=== PATIENT | male | born 1980 | race Caucasian/White ===

== ENCOUNTER 2022-02-13 12:47 | Inpatient (IN) | payer OTHER ==
[2022-02-13 15:09] LABS: HEMATOCRIT 39.3 % (35.4-49); HEMOGLOBIN 13.3 GM/dL (11.7-16.9); MCH 27.1 pg (25.7-33.7); MCHC 33.8 g/dl (32.0-35.9); MEAN CELL VOLUME 80.4 fl (80-96); MEAN PLT VOLUME 8.9 fl (7.5-11.1); PLATELET COUNT 231 10^3/uL (134-434); RBC 4.88 M/mm3 (4.00-5.60); RDW 14.3 % (11.9-15.9); WHITE BLOOD COUNT 10.7 K/mm3 (4.0-10.0)
[2022-02-13 15:11] LABS: INR 0.97 (0.83-1.09); PROTHROMBIN TIME (PATIENT) 11.2 SEC (9.7-13.0)
[2022-02-13 15:24] LABS: CHLORIDE 105 mmol/L (98-107); SODIUM 140 mmol/L (136-145)
[2022-02-13 15:27] LABS: ANION GAP 16 MMOL/L (8-16); CO2 19 mmol/L (21-32); GLUCOSE,RANDOM 96 mg/dL (74-106)
[2022-02-13 15:30] LABS: SGOT/AST 30 U/L (15-37); SGPT/ALT 31 U/L (13-61)
[2022-02-13 15:31] LABS: TOT PROT 6.7 g/dl (6.4-8.2)
[2022-02-13 15:33] LABS: ALK PHOS 111 U/L (45-117)
[2022-02-13 15:51] LABS: BILIRUBIN,TOTAL 0.3 mg/dL (0.2-1); BLOOD UREA NITROGEN 130.3 mg/dL (7-18); CALCIUM 5.9 mg/dL (8.5-10.1); CREATININE 11.2 mg/dL (0.55-1.3)
[2022-02-13] MEDS ORDERED: CALCIUM GLUCONATE 10% - 1,000 MG/10 ML VIAL IVPUSH ONE (16:41)
[2022-02-13] MEDS ORDERED: SODIUM CHLORIDE 0.9% 1000 ML INFUS.BAG IV ONE (16:43)
[2022-02-13] MEDS ORDERED: HEPARIN NA (PORCINE) 5,000 UNITS/ML 1ML VIAL IVPUSH ONE (16:44)
[2022-02-13] MEDS ORDERED: HEPARIN NA (PORCINE) 5,000 UNITS/ML 1ML VIAL IVPUSH PRN (16:44)
[2022-02-13] MEDS ORDERED: ASPIRIN 325 MG TABLET PO ONE (16:44)
[2022-02-13] MEDS ORDERED: LACTATED RINGERS SOLUTION 1,000 ML/1,000 ML INFUS.BAG IV SCH (16:45)
[2022-02-13] MEDS ORDERED: CALCIUM GLUCONATE 10% - 1,000 MG/10 ML VIAL ONE (16:46)
[2022-02-13] MEDS ORDERED: HEPARIN INFUSION - 25,000 UNITS/500 ML INFUS.BAG IVPB ONE (17:03)
[2022-02-13] MEDS ORDERED: ASPIRIN 325 MG TABLET ONE (17:03)
[2022-02-13] MEDS ORDERED: HEPARIN NA (PORCINE) 5,000 UNITS/ML 1ML VIAL ONE ×2 (17:03→22:59)
[2022-02-13] MEDS: HEPARIN INFUSION - 25,000 UNITS/500 ML INFUS.BAG IVPB SCH (17:12)
[2022-02-13 17:58] LABS: ACTIVATED PTT 40.4 SECONDS (25.2-36.5)
[2022-02-13 18:20] LABS: CHOLESTEROL 251 mg/dL (50-200)
[2022-02-13 18:21] LABS: TRIGLYCERIDES 323 mg/dL (0-150)
[2022-02-13 18:22] LABS: LDL CHOLESTEROL (ONLY SJRH) 168 mg/dL (5-100)
[2022-02-13 18:24] LABS: HDL CHOLESTEROL 55 mg/dL (40-60)
[2022-02-13 18:24] LABS: EPI CELLS 14 /uL (0-25.1); HYALINE CASTS 1 /uL (0-3.1); PH,URINE 5.5 (5.0-8.0); URINE APPEARANCE CLEAR; URINE BACTERIA 17 /uL (0-1359); URINE BILIRUBIN NEGATIVE (NEGATIVE); URINE COLOR YELLOW; URINE GLUCOSE (UA) TRACE (NEGATIVE); URINE KETONE NEGATIVE (NEGATIVE); URINE LEUK ESTERASE NEGATIVE (NEGATIVE); URINE NITRITE NEGATIVE (NEGATIVE); URINE PROTEIN 4+ (NEGATIVE); URINE RBC 14 /uL (0-23.9); URINE UROBILINOGEN 0.2 mg/dL (0.2-1.0); URINE WBC 33 /uL (0-25.8)
[2022-02-13 19:06] LABS: EPI CELLS 14 /uL (0-25.1); HYALINE CASTS 0 /uL (0-3.1); PH,URINE 5.5 (5.0-8.0); URINE APPEARANCE CLEAR; URINE BACTERIA 11 /uL (0-1359); URINE BILIRUBIN NEGATIVE (NEGATIVE); URINE COLOR YELLOW; URINE GLUCOSE (UA) NEGATIVE (NEGATIVE); URINE KETONE NEGATIVE (NEGATIVE); URINE LEUK ESTERASE NEGATIVE (NEGATIVE); URINE NITRITE NEGATIVE (NEGATIVE); URINE PROTEIN 4+ (NEGATIVE); URINE RBC 36 /uL (0-23.9); URINE UROBILINOGEN 0.2 mg/dL (0.2-1.0); URINE WBC 36 /uL (0-25.8)
[2022-02-13] MEDS: HEPARIN NA (PORCINE) 5,000 UNITS/ML 1ML VIAL IVPUSH PRN (23:00)
[2022-02-13 23:14] LABS: CHLORIDE 109 mmol/L (98-107); SODIUM 143 mmol/L (136-145)
[2022-02-13 23:16] LABS: ANION GAP 18 MMOL/L (8-16); CO2 16 mmol/L (21-32); GLUCOSE,RANDOM 127 mg/dL (74-106)
[2022-02-13 23:43] LABS: BLOOD UREA NITROGEN 122.2 mg/dL (7-18); CALCIUM 5.5 mg/dL (8.5-10.1); CREATININE 10.5 mg/dL (0.55-1.3)
[2022-02-14] MEDS ORDERED: CALCIUM GLUCONATE 10% - 1,000 MG/10 ML VIAL IVPUSH ONE ×2 (00:14→06:36)
[2022-02-14] MEDS ORDERED: CALCIUM CHLORIDE 1 GM/10 ML *DISP.SYRIN ONE (00:22)
[2022-02-14] MEDS ORDERED: CALCIUM GLUC IN NACL, ISO-OSM 1 GM/50 ML BAG IVPB ONE (00:24)
[2022-02-14] MEDS ORDERED: CALCIUM GLUCONATE 10% - 1,000 MG/10 ML VIAL ONE (00:24)
[2022-02-14 04:56] LABS: MAGNESIUM 2.3 mg/dL (1.8-2.4)
[2022-02-14] MEDS: HEPARIN NA (PORCINE) 5,000 UNITS/ML 1ML VIAL IVPUSH PRN (06:00)
[2022-02-14] MEDS ORDERED: HEPARIN NA (PORCINE) 5,000 UNITS/ML 1ML VIAL ONE ×3 (06:00→20:05)
[2022-02-14] MEDS ORDERED: CHOLECALCIFEROL (VIT D3) 1,000 UNIT (25 MCG) TABLET PO ONE (06:45)
[2022-02-14 08:04] LABS: BASO % 1.2 % (0-2.0); EOS % 3.2 % (0-4.5); HEMATOCRIT 36.5 % (35.4-49); LYMPH % 15.4 % (8-40); MCH 26.3 pg (25.7-33.7); MCHC 32.7 g/dl (32.0-35.9); MEAN CELL VOLUME 80.5 fl (80-96); MEAN PLT VOLUME 9.4 fl (7.5-11.1); MONO % 6.3 % (3.8-10.2); NEUT % 73.9 % (42.8-82.8); PLATELET COUNT 190 10^3/uL (134-434); RBC 4.54 M/mm3 (4.00-5.60); RDW 14.3 % (11.9-15.9); WHITE BLOOD COUNT 9.5 K/mm3 (4.0-10.0)
[2022-02-14 08:29] LABS: CHLORIDE 110 mmol/L (98-107); SODIUM 142 mmol/L (136-145)
[2022-02-14 08:38] LABS: ALBUMIN 2.6 g/dl (3.4-5.0)
[2022-02-14 08:40] LABS: ANION GAP 15 MMOL/L (8-16); CO2 17 mmol/L (21-32); GLUCOSE,RANDOM 99 mg/dL (74-106); MAGNESIUM 2.4 mg/dL (1.8-2.4)
[2022-02-14 08:42] LABS: PHOSPHOROUS 7.8 mg/dL (2.5-4.9); SGOT/AST 25 U/L (15-37); SGPT/ALT 26 U/L (13-61)
[2022-02-14 08:43] LABS: BILIRUBIN,TOTAL 0.4 mg/dL (0.2-1); TOT PROT 5.8 g/dl (6.4-8.2)
[2022-02-14 08:44] LABS: ALK PHOS 90 U/L (45-117)
[2022-02-14 08:50] LABS: BLOOD UREA NITROGEN 116.8 mg/dL (7-18); CALCIUM 6.4 mg/dL (8.5-10.1); CREATININE 10.3 mg/dL (0.55-1.3)
[2022-02-14] MEDS ORDERED: amLODIPine BESYLATE 5 MG TABLET (FP) ONE (11:48)
[2022-02-14] MEDS: LACTATED RINGERS SOLUTION 1,000 ML/1,000 ML INFUS.BAG IV SCH (11:51)
[2022-02-14] MEDS: SODIUM BICARBONATE 650 MG TABLET PO SCH (11:51)
[2022-02-14] MEDS: CALCIUM ACETATE 667 MG CAPSULE (FP) PO SCH ×2 (11:51→17:30)
[2022-02-14] MEDS: amLODIPine BESYLATE 5 MG TABLET (FP) PO SCH (11:51)
[2022-02-14] MEDS: CALCITRIOL 0.25 MCG CAPSULE (FP) PO SCH (14:45)
[2022-02-14] MEDS ORDERED: ACETAMINOPHEN 325 MG TABLET (FP) PO PRN (16:34)
[2022-02-14] MEDS ORDERED: HEPARIN INFUSION - 25,000 UNITS/500 ML INFUS.BAG IVPB ONE (23:14)
[2022-02-15] MEDS: SODIUM BICARBONATE 650 MG TABLET PO SCH ×3 (02:19→21:01)
[2022-02-15] MEDS: CALCIUM ACETATE 667 MG CAPSULE (FP) PO SCH ×3 (09:00→17:25)
[2022-02-15 09:12] LABS: BASO % 0.8 % (0-2.0); HEMATOCRIT 38.9 % (35.4-49); HEMOGLOBIN 12.5 GM/dL (11.7-16.9); LYMPH % 12.3 % (8-40); MCH 26.2 pg (25.7-33.7); MCHC 32.3 g/dl (32.0-35.9); MEAN CELL VOLUME 81.2 fl (80-96); MEAN PLT VOLUME 9.5 fl (7.5-11.1); MONO % 5.5 % (3.8-10.2); NEUT % 78.4 % (42.8-82.8); PLATELET COUNT 192 10^3/uL (134-434); RBC 4.78 M/mm3 (4.00-5.60); RDW 14.3 % (11.9-15.9); WHITE BLOOD COUNT 11.3 K/mm3 (4.0-10.0)
[2022-02-15] MEDS: CALCITRIOL 0.25 MCG CAPSULE (FP) PO SCH (09:26)
[2022-02-15] MEDS: amLODIPine BESYLATE 5 MG TABLET (FP) PO SCH (09:26)
[2022-02-15] MEDS ORDERED: amLODIPine BESYLATE 5 MG TABLET (FP) PO ONE (10:14)
[2022-02-15 11:50] LABS: CHLORIDE 109 mmol/L (98-107); SODIUM 143 mmol/L (136-145)
[2022-02-15 11:56] LABS: ALBUMIN 2.7 g/dl (3.4-5.0); GLUCOSE,RANDOM 109 mg/dL (74-106)
[2022-02-15 11:57] LABS: ANION GAP 16 MMOL/L (8-16); CO2 18 mmol/L (21-32); MAGNESIUM 2.1 mg/dL (1.8-2.4)
[2022-02-15 11:58] LABS: PHOSPHOROUS 7.2 mg/dL (2.5-4.9)
[2022-02-15 12:00] LABS: SGPT/ALT 25 U/L (13-61)
[2022-02-15 12:01] LABS: ALK PHOS 91 U/L (45-117)
[2022-02-15 12:03] LABS: SGOT/AST 16 U/L (15-37)
[2022-02-15] MEDS: LACTATED RINGERS SOLUTION 1,000 ML/1,000 ML INFUS.BAG IV SCH ×3 (12:04→21:01)
[2022-02-15 15:40] LABS: BILIRUBIN,TOTAL QNS mg/dL (0.2-1)
[2022-02-15 15:43] LABS: CREATININE 10.1 mg/dL (0.55-1.3)
[2022-02-15 15:44] LABS: CALCIUM 6.8 mg/dL (8.5-10.1)
[2022-02-15] MEDS: HEPARIN INFUSION - 25,000 UNITS/500 ML INFUS.BAG IVPB SCH ×2 (17:18→17:24)
[2022-02-15] MEDS ORDERED: hydrALAZINE HCL 10 MG TABLET PO SCH (20:15)
[2022-02-15] MEDS: METOPROLOL TARTRATE 25 MG TABLET (FP) PO SCH (23:15)
[2022-02-15] MEDS: hydrALAZINE HCL 25 MG TABLET (FP) PO SCH (23:15)
[2022-02-15] MEDS: ISOSORBIDE DINITRATE 10 MG TABLET PO SCH (23:15)
[2022-02-16 07:15] LABS: BASO % 0.9 % (0-2.0); HEMATOCRIT 35.5 % (35.4-49); HEMOGLOBIN 11.7 GM/dL (11.7-16.9); LYMPH % 11.9 % (8-40); MCH 26.6 pg (25.7-33.7); MCHC 33.1 g/dl (32.0-35.9); MEAN CELL VOLUME 80.4 fl (80-96); MEAN PLT VOLUME 9.2 fl (7.5-11.1); MONO % 7.1 % (3.8-10.2); NEUT % 76.1 % (42.8-82.8); PLATELET COUNT 180 10^3/uL (134-434); RBC 4.42 M/mm3 (4.00-5.60); RDW 14.4 % (11.9-15.9); WHITE BLOOD COUNT 12.3 K/mm3 (4.0-10.0)
[2022-02-16 07:29] LABS: CHLORIDE 110 mmol/L (98-107); SODIUM 143 mmol/L (136-145)
[2022-02-16 07:31] LABS: ALBUMIN 2.6 g/dl (3.4-5.0); ANION GAP 14 MMOL/L (8-16); CO2 19 mmol/L (21-32); GLUCOSE,RANDOM 99 mg/dL (74-106); MAGNESIUM 1.8 mg/dL (1.8-2.4)
[2022-02-16 07:34] LABS: PHOSPHOROUS 6.6 mg/dL (2.5-4.9); SGOT/AST 14 U/L (15-37); SGPT/ALT 22 U/L (13-61)
[2022-02-16 07:37] LABS: BILIRUBIN,TOTAL 0.3 mg/dL (0.2-1); TOT PROT 5.8 g/dl (6.4-8.2)
[2022-02-16 07:38] LABS: ALK PHOS 83 U/L (45-117)
[2022-02-16 08:20] LABS: CALCIUM 6.5 mg/dL (8.5-10.1); CREATININE 10.3 mg/dL (0.55-1.3)
[2022-02-16] MEDS: CALCIUM ACETATE 667 MG CAPSULE (FP) PO SCH ×4 (08:51→17:12)
[2022-02-16] MEDS: ISOSORBIDE DINITRATE 10 MG TABLET PO SCH ×2 (08:51→13:55)
[2022-02-16] MEDS: SODIUM BICARBONATE 650 MG TABLET PO SCH ×2 (09:56→21:17)
[2022-02-16] MEDS: CALCITRIOL 0.25 MCG CAPSULE (FP) PO SCH (09:56)
[2022-02-16] MEDS: hydrALAZINE HCL 25 MG TABLET (FP) PO SCH ×2 (09:59→21:17)
[2022-02-16] MEDS: METOPROLOL TARTRATE 25 MG TABLET (FP) PO SCH ×2 (09:59→21:17)
[2022-02-16] MEDS ORDERED: amLODIPine BESYLATE 5 MG TABLET (FP) PO SCH (10:00)
[2022-02-16] MEDS ORDERED: SODIUM CHLORIDE 250 ML IV PRN ×2 (11:01→15:48)
[2022-02-16] MEDS ORDERED: LIDOCAINE HCL 1%, 10 MG/ML (20ML VIAL) ONE (14:47)
[2022-02-16] MEDS ORDERED: HEPARIN NA (PORCINE) 5,000 UNITS/ML 1ML VIAL ONE (14:48)
[2022-02-16] MEDS ORDERED: FENTANYL CITRATE/PF 50 MCG/ML VIAL ONE (14:56)
[2022-02-16] MEDS ORDERED: MIDAZOLAM HCL 2 MG/2 ML SINGLE DOSE VIAL ONE (14:56)
[2022-02-16] MEDS ORDERED: ceFAZolin SODIUM 1 GM VIAL IVPB ONE (15:15)
[2022-02-16] MEDS ORDERED: ceFAZolin SODIUM 1 GM VIAL ONE (15:16)
[2022-02-16] MEDS ORDERED: ONDANSETRON 4 MG/2 ML VIAL IVPUSH PRN ×2 (15:17→15:48)
[2022-02-16] MEDS ORDERED: LIDOCAINE HCL 1%, 10 MG/ML (20ML VIAL) NR ONE (15:17)
[2022-02-16] MEDS ORDERED: HEPARIN NA (PORCINE) 5,000 UNITS/ML 1ML VIAL SQ ONE (15:21)
[2022-02-16] MEDS ORDERED: LACTATED RINGERS SOLUTION 1,000 ML IV SCH (15:30)
[2022-02-16] MEDS ORDERED: ACETAMINOPHEN 325 MG TABLET (FP) PO PRN (15:48)
[2022-02-16] MEDS: LACTATED RINGERS SOLUTION 1,000 ML IV SCH (17:59)
[2022-02-17] MEDS: hydrALAZINE HCL 25 MG TABLET (FP) PO SCH ×4 (06:40→22:25)
[2022-02-17] MEDS: LACTATED RINGERS SOLUTION 1,000 ML IV SCH (06:41)
[2022-02-17 08:21] LABS: EOS % 3.1 % (0-4.5); HEMATOCRIT 37.9 % (35.4-49); HEMOGLOBIN 12.5 GM/dL (11.7-16.9); LYMPH % 10.9 % (8-40); MCH 26.2 pg (25.7-33.7); MCHC 32.9 g/dl (32.0-35.9); MEAN CELL VOLUME 79.8 fl (80-96); MEAN PLT VOLUME 9.3 fl (7.5-11.1); MONO % 6.1 % (3.8-10.2); NEUT % 78.9 % (42.8-82.8); PLATELET COUNT 186 10^3/uL (134-434); RBC 4.75 M/mm3 (4.00-5.60); RDW 13.8 % (11.9-15.9); WHITE BLOOD COUNT 9.5 K/mm3 (4.0-10.0)
[2022-02-17 08:39] LABS: CHLORIDE 108 mmol/L (98-107); SODIUM 144 mmol/L (136-145)
[2022-02-17 09:31] LABS: ANION GAP 12 MMOL/L (8-16); CO2 23 mmol/L (21-32)
[2022-02-17] MEDS: METOPROLOL TARTRATE 25 MG TABLET (FP) PO SCH ×2 (09:38→22:24)
[2022-02-17] MEDS: CALCIUM ACETATE 667 MG CAPSULE (FP) PO SCH ×3 (09:38→17:06)
[2022-02-17] MEDS: amLODIPine BESYLATE 10 MG TABLET (FP) PO SCH (09:38)
[2022-02-17] MEDS: ISOSORBIDE DINITRATE 10 MG TABLET PO SCH ×2 (09:38→13:21)
[2022-02-17] MEDS: SODIUM BICARBONATE 650 MG TABLET PO SCH ×2 (09:38→22:25)
[2022-02-17] MEDS: CALCITRIOL 0.25 MCG CAPSULE (FP) PO SCH (09:39)
[2022-02-17] MEDS ORDERED: amLODIPine BESYLATE 5 MG TABLET (FP) PO SCH (10:00)
[2022-02-17 10:01] LABS: GLUCOSE,RANDOM 87 mg/dL (74-106)
[2022-02-17 10:02] LABS: ALBUMIN 2.8 g/dl (3.4-5.0)
[2022-02-17 10:04] LABS: PHOSPHOROUS 5.7 mg/dL (2.5-4.9); SGOT/AST 25 U/L (15-37)
[2022-02-17 10:06] LABS: TOT PROT 6.4 g/dl (6.4-8.2)
[2022-02-17 10:07] LABS: BILIRUBIN,TOTAL 0.4 mg/dL (0.2-1)
[2022-02-17 12:42] LABS: SGPT/ALT 27 U/L (13-61)
[2022-02-17 13:54] LABS: ALK PHOS 90 U/L (45-117)
[2022-02-17 13:57] LABS: BLOOD UREA NITROGEN 75.2 mg/dL (7-18); CALCIUM 7.6 mg/dL (8.5-10.1); CREATININE 8.2 mg/dL (0.55-1.3)
[2022-02-18] MEDS: hydrALAZINE HCL 25 MG TABLET (FP) PO SCH ×3 (06:12→21:02)
[2022-02-18 07:41] LABS: HEMATOCRIT 38.2 % (35.4-49); HEMOGLOBIN 12.5 GM/dL (11.7-16.9); MCH 26.5 pg (25.7-33.7); MCHC 32.7 g/dl (32.0-35.9); MEAN CELL VOLUME 80.9 fl (80-96); MEAN PLT VOLUME 9.4 fl (7.5-11.1); PLATELET COUNT 188 10^3/uL (134-434); RBC 4.72 M/mm3 (4.00-5.60); WHITE BLOOD COUNT 9.6 K/mm3 (4.0-10.0)
[2022-02-18 08:00] LABS: CHLORIDE 108 mmol/L (98-107); SODIUM 141 mmol/L (136-145)
[2022-02-18 08:07] LABS: ALBUMIN 2.9 g/dl (3.4-5.0); CALCIUM 7.7 mg/dL (8.5-10.1); GLUCOSE,RANDOM 96 mg/dL (74-106)
[2022-02-18 08:08] LABS: ANION GAP 12 MMOL/L (8-16); CO2 22 mmol/L (21-32)
[2022-02-18 08:11] LABS: SGOT/AST 17 U/L (15-37); SGPT/ALT 23 U/L (13-61)
[2022-02-18 08:12] LABS: BILIRUBIN,TOTAL 0.4 mg/dL (0.2-1); TOT PROT 6.3 g/dl (6.4-8.2)
[2022-02-18 08:13] LABS: ALK PHOS 92 U/L (45-117)
[2022-02-18] MEDS: CALCIUM ACETATE 667 MG CAPSULE (FP) PO SCH ×3 (08:54→17:17)
[2022-02-18] MEDS: ISOSORBIDE DINITRATE 10 MG TABLET PO SCH ×2 (08:54→12:02)
[2022-02-18] MEDS: SODIUM BICARBONATE 650 MG TABLET PO SCH ×2 (09:05→21:02)
[2022-02-18] MEDS: amLODIPine BESYLATE 10 MG TABLET (FP) PO SCH (09:05)
[2022-02-18] MEDS: METOPROLOL TARTRATE 25 MG TABLET (FP) PO SCH ×2 (09:05→21:02)
[2022-02-18] MEDS: CALCITRIOL 0.25 MCG CAPSULE (FP) PO SCH (09:06)
[2022-02-18] MEDS ORDERED: SODIUM CHLORIDE 250 ML IV PRN (11:24)
[2022-02-18] MEDS: HEPARIN NA (PORCINE) 5,000 UNITS/ML 1ML VIAL SQ SCH (21:02)
[2022-02-19] MEDS: hydrALAZINE HCL 25 MG TABLET (FP) PO SCH ×3 (05:25→21:22)
[2022-02-19 08:40] LABS: HEMATOCRIT 39.1 % (35.4-49); HEMOGLOBIN 12.8 GM/dL (11.7-16.9); MCH 26.4 pg (25.7-33.7); MCHC 32.7 g/dl (32.0-35.9); MEAN CELL VOLUME 80.8 fl (80-96); MEAN PLT VOLUME 9.6 fl (7.5-11.1); PLATELET COUNT 188 10^3/uL (134-434); RBC 4.84 M/mm3 (4.00-5.60); RDW 13.9 % (11.9-15.9); WHITE BLOOD COUNT 9.9 K/mm3 (4.0-10.0)
[2022-02-19] MEDS: ISOSORBIDE DINITRATE 10 MG TABLET PO SCH ×2 (08:47→12:12)
[2022-02-19] MEDS: CALCIUM ACETATE 667 MG CAPSULE (FP) PO SCH ×3 (08:48→17:25)
[2022-02-19 09:04] LABS: CHLORIDE 107 mmol/L (98-107); SODIUM 141 mmol/L (136-145)
[2022-02-19 09:09] LABS: CALCIUM 7.7 mg/dL (8.5-10.1)
[2022-02-19 09:10] LABS: ALBUMIN 2.9 g/dl (3.4-5.0); ANION GAP 14 MMOL/L (8-16); BLOOD UREA NITROGEN 88.3 mg/dL (7-18); CO2 20 mmol/L (21-32); GLUCOSE,RANDOM 90 mg/dL (74-106)
[2022-02-19 09:12] LABS: SGOT/AST 16 U/L (15-37); SGPT/ALT 22 U/L (13-61)
[2022-02-19 09:14] LABS: BILIRUBIN,TOTAL 0.3 mg/dL (0.2-1); TOT PROT 6.3 g/dl (6.4-8.2)
[2022-02-19 09:15] LABS: ALK PHOS 89 U/L (45-117)
[2022-02-19 09:16] LABS: CREATININE 9.7 mg/dL (0.55-1.3)
[2022-02-19] MEDS ORDERED: HEPARIN NA (PORCINE) 5,000 UNITS/ML 1ML VIAL IVPUSH ONE (09:30)
[2022-02-19] MEDS: amLODIPine BESYLATE 10 MG TABLET (FP) PO SCH (12:11)
[2022-02-19] MEDS: CALCITRIOL 0.25 MCG CAPSULE (FP) PO SCH (12:11)
[2022-02-19] MEDS: HEPARIN NA (PORCINE) 5,000 UNITS/ML 1ML VIAL SQ SCH ×2 (12:12→21:22)
[2022-02-19] MEDS: METOPROLOL TARTRATE 25 MG TABLET (FP) PO SCH (12:12)
[2022-02-19] MEDS: METOPROLOL TARTRATE 50 MG TABLET (FP) PO SCH (21:22)
[2022-02-20] MEDS: hydrALAZINE HCL 25 MG TABLET (FP) PO SCH ×3 (06:22→21:14)
[2022-02-20 07:59] LABS: HEMATOCRIT 39.2 % (35.4-49); HEMOGLOBIN 12.9 GM/dL (11.7-16.9); MCH 26.6 pg (25.7-33.7); MCHC 32.9 g/dl (32.0-35.9); MEAN CELL VOLUME 80.7 fl (80-96); MEAN PLT VOLUME 9.6 fl (7.5-11.1); PLATELET COUNT 192 10^3/uL (134-434); RBC 4.85 M/mm3 (4.00-5.60); RDW 14.3 % (11.9-15.9); WHITE BLOOD COUNT 10.2 K/mm3 (4.0-10.0)
[2022-02-20 08:04] LABS: CHLORIDE 105 mmol/L (98-107); SODIUM 142 mmol/L (136-145)
[2022-02-20 08:08] LABS: CALCIUM 7.6 mg/dL (8.5-10.1)
[2022-02-20 08:09] LABS: ALBUMIN 2.9 g/dl (3.4-5.0); ANION GAP 14 MMOL/L (8-16); BLOOD UREA NITROGEN 63.6 mg/dL (7-18); CO2 23 mmol/L (21-32); GLUCOSE,RANDOM 100 mg/dL (74-106); MAGNESIUM 2.3 mg/dL (1.8-2.4)
[2022-02-20 08:12] LABS: SGOT/AST 19 U/L (15-37); SGPT/ALT 27 U/L (13-61)
[2022-02-20 08:14] LABS: BILIRUBIN,TOTAL 0.7 mg/dL (0.2-1); TOT PROT 6.6 g/dl (6.4-8.2)
[2022-02-20 08:15] LABS: ALK PHOS 89 U/L (45-117)
[2022-02-20 08:17] LABS: CREATININE 8.4 mg/dL (0.55-1.3)
[2022-02-20] MEDS: CALCIUM ACETATE 667 MG CAPSULE (FP) PO SCH ×3 (09:59→17:10)
[2022-02-20] MEDS: CALCITRIOL 0.25 MCG CAPSULE (FP) PO SCH (10:00)
[2022-02-20] MEDS: ISOSORBIDE DINITRATE 10 MG TABLET PO SCH ×2 (10:00→12:12)
[2022-02-20] MEDS: amLODIPine BESYLATE 10 MG TABLET (FP) PO SCH (10:00)
[2022-02-20] MEDS: METOPROLOL TARTRATE 50 MG TABLET (FP) PO SCH ×2 (10:00→21:12)
[2022-02-20] MEDS: HEPARIN NA (PORCINE) 5,000 UNITS/ML 1ML VIAL SQ SCH ×2 (10:00→21:11)
[2022-02-20] MEDS ORDERED: SODIUM CHLORIDE 250 ML IV PRN (13:56)
[2022-02-21] MEDS: hydrALAZINE HCL 25 MG TABLET (FP) PO SCH ×4 (06:09→21:05)
[2022-02-21 07:47] LABS: HEMATOCRIT 38.3 % (35.4-49); HEMOGLOBIN 12.8 GM/dL (11.7-16.9); MCHC 33.3 g/dl (32.0-35.9); MEAN CELL VOLUME 80.9 fl (80-96); MEAN PLT VOLUME 9.1 fl (7.5-11.1); PLATELET COUNT 190 10^3/uL (134-434); RBC 4.73 M/mm3 (4.00-5.60); WHITE BLOOD COUNT 10.1 K/mm3 (4.0-10.0)
[2022-02-21 08:02] LABS: CHLORIDE 106 mmol/L (98-107); SODIUM 141 mmol/L (136-145)
[2022-02-21 08:05] LABS: CALCIUM 7.6 mg/dL (8.5-10.1)
[2022-02-21 08:06] LABS: ANION GAP 13 MMOL/L (8-16); CO2 22 mmol/L (21-32); GLUCOSE,RANDOM 93 mg/dL (74-106); MAGNESIUM 2.5 mg/dL (1.8-2.4)
[2022-02-21 08:09] LABS: SGOT/AST 20 U/L (15-37); SGPT/ALT 27 U/L (13-61)
[2022-02-21 08:11] LABS: BILIRUBIN,TOTAL 0.4 mg/dL (0.2-1); TOT PROT 6.6 g/dl (6.4-8.2)
[2022-02-21 08:12] LABS: ALK PHOS 92 U/L (45-117)
[2022-02-21 08:13] LABS: CREATININE 9.6 mg/dL (0.55-1.3)
[2022-02-21] MEDS: ISOSORBIDE DINITRATE 10 MG TABLET PO SCH ×2 (08:35→12:20)
[2022-02-21] MEDS: CALCIUM ACETATE 667 MG CAPSULE (FP) PO SCH ×3 (08:36→17:03)
[2022-02-21] MEDS ORDERED: REGADENOSON 0.4 MG/5 ML PRE-FILLED SYRINGE IVPUSH ONE ×2 (10:28→11:00)
[2022-02-21] MEDS: HEPARIN NA (PORCINE) 5,000 UNITS/ML 1ML VIAL SQ SCH ×2 (12:18→21:05)
[2022-02-21] MEDS: CALCITRIOL 0.25 MCG CAPSULE (FP) PO SCH (12:18)
[2022-02-21] MEDS: amLODIPine BESYLATE 10 MG TABLET (FP) PO SCH (14:33)
[2022-02-21] MEDS: ASPIRIN COATED 81 MG TABLET.EC PO SCH (21:05)
[2022-02-22] MEDS: hydrALAZINE HCL 25 MG TABLET (FP) PO SCH ×3 (06:09→21:12)
[2022-02-22 07:57] LABS: HEMOGLOBIN 12.3 GM/dL (11.7-16.9); MCH 26.4 pg (25.7-33.7); MCHC 32.5 g/dl (32.0-35.9); MEAN CELL VOLUME 81.3 fl (80-96); MEAN PLT VOLUME 9.4 fl (7.5-11.1); PLATELET COUNT 178 10^3/uL (134-434); RBC 4.68 M/mm3 (4.00-5.60); RDW 13.8 % (11.9-15.9); WHITE BLOOD COUNT 8.3 K/mm3 (4.0-10.0)
[2022-02-22 08:20] LABS: CALCIUM 7.8 mg/dL (8.5-10.1)
[2022-02-22 08:21] LABS: MAGNESIUM 2.3 mg/dL (1.8-2.4)
[2022-02-22 08:24] LABS: CREATININE 7.4 mg/dL (0.55-1.3)
[2022-02-22 08:26] LABS: BILIRUBIN,TOTAL 0.5 mg/dL (0.2-1); TOT PROT 6.4 g/dl (6.4-8.2)
[2022-02-22] MEDS: CALCIUM ACETATE 667 MG CAPSULE (FP) PO SCH ×3 (09:18→17:10)
[2022-02-22] MEDS: ASPIRIN COATED 81 MG TABLET.EC PO SCH (09:18)
[2022-02-22] MEDS: ISOSORBIDE DINITRATE 10 MG TABLET PO SCH ×2 (09:19→13:06)
[2022-02-22] MEDS: HEPARIN NA (PORCINE) 5,000 UNITS/ML 1ML VIAL SQ SCH ×2 (09:19→21:12)
[2022-02-22] MEDS: amLODIPine BESYLATE 10 MG TABLET (FP) PO SCH (09:19)
[2022-02-22] MEDS: CALCITRIOL 0.25 MCG CAPSULE (FP) PO SCH (09:19)
[2022-02-22] MEDS ORDERED: SODIUM CHLORIDE 250 ML IV PRN (11:59)
[2022-02-23] MEDS: hydrALAZINE HCL 25 MG TABLET (FP) PO SCH ×3 (05:54→21:20)
[2022-02-23 09:01] LABS: HEMATOCRIT 38.6 % (35.4-49); HEMOGLOBIN 12.3 GM/dL (11.7-16.9); MCH 26.1 pg (25.7-33.7); MCHC 31.9 g/dl (32.0-35.9); MEAN CELL VOLUME 81.8 fl (80-96); MEAN PLT VOLUME 9.4 fl (7.5-11.1); PLATELET COUNT 197 10^3/uL (134-434); RBC 4.71 M/mm3 (4.00-5.60); RDW 13.8 % (11.9-15.9); WHITE BLOOD COUNT 7.6 K/mm3 (4.0-10.0)
[2022-02-23 09:16] LABS: CHLORIDE 103 mmol/L (98-107); SODIUM 140 mmol/L (136-145)
[2022-02-23 09:18] LABS: CALCIUM 8.1 mg/dL (8.5-10.1)
[2022-02-23 09:19] LABS: ALBUMIN 3.1 g/dl (3.4-5.0); ANION GAP 13 MMOL/L (8-16); BLOOD UREA NITROGEN 65.4 mg/dL (7-18); CO2 23 mmol/L (21-32); GLUCOSE,RANDOM 211 mg/dL (74-106); MAGNESIUM 2.4 mg/dL (1.8-2.4)
[2022-02-23 09:22] LABS: SGOT/AST 19 U/L (15-37); SGPT/ALT 29 U/L (13-61)
[2022-02-23 09:23] LABS: BILIRUBIN,TOTAL 0.3 mg/dL (0.2-1); TOT PROT 6.6 g/dl (6.4-8.2)
[2022-02-23 09:25] LABS: ALK PHOS 86 U/L (45-117)
[2022-02-23 09:30] LABS: CREATININE 8.8 mg/dL (0.55-1.3)
[2022-02-23] MEDS: HEPARIN NA (PORCINE) 5,000 UNITS/ML 1ML VIAL SQ SCH ×2 (10:43→21:21)
[2022-02-23] MEDS: amLODIPine BESYLATE 10 MG TABLET (FP) PO SCH (10:44)
[2022-02-23] MEDS: CALCITRIOL 0.25 MCG CAPSULE (FP) PO SCH (10:45)
[2022-02-23] MEDS: ASPIRIN COATED 81 MG TABLET.EC PO SCH (10:45)
[2022-02-23] MEDS: CALCIUM ACETATE 667 MG CAPSULE (FP) PO SCH ×3 (10:45→17:14)
[2022-02-23] MEDS: ISOSORBIDE DINITRATE 10 MG TABLET PO SCH ×2 (10:45→14:35)
[2022-02-24] MEDS: hydrALAZINE HCL 25 MG TABLET (FP) PO SCH ×3 (06:23→21:10)
[2022-02-24 07:19] LABS: HEMATOCRIT 38.7 % (35.4-49); HEMOGLOBIN 12.5 GM/dL (11.7-16.9); MCH 26.2 pg (25.7-33.7); MCHC 32.3 g/dl (32.0-35.9); MEAN PLT VOLUME 9.2 fl (7.5-11.1); PLATELET COUNT 197 10^3/uL (134-434); RBC 4.78 M/mm3 (4.00-5.60); RDW 13.9 % (11.9-15.9); WHITE BLOOD COUNT 7.8 K/mm3 (4.0-10.0)
[2022-02-24 07:32] LABS: CALCIUM 8.2 mg/dL (8.5-10.1)
[2022-02-24 07:33] LABS: ALBUMIN 3.1 g/dl (3.4-5.0)
[2022-02-24 07:36] LABS: CREATININE 7.2 mg/dL (0.55-1.3)
[2022-02-24 07:38] LABS: BILIRUBIN,TOTAL 0.4 mg/dL (0.2-1); TOT PROT 6.6 g/dl (6.4-8.2)
[2022-02-24] MEDS: ISOSORBIDE DINITRATE 10 MG TABLET PO SCH ×2 (08:18→12:57)
[2022-02-24] MEDS: CALCIUM ACETATE 667 MG CAPSULE (FP) PO SCH ×3 (08:18→17:05)
[2022-02-24] MEDS: CALCITRIOL 0.25 MCG CAPSULE (FP) PO SCH (09:01)
[2022-02-24] MEDS: HEPARIN NA (PORCINE) 5,000 UNITS/ML 1ML VIAL SQ SCH ×2 (09:01→21:15)
[2022-02-24] MEDS: ASPIRIN COATED 81 MG TABLET.EC PO SCH (09:01)
[2022-02-24] MEDS: amLODIPine BESYLATE 10 MG TABLET (FP) PO SCH (09:01)
[2022-02-24 15:02] VITALS: BMI 33.0
[2022-02-25] MEDS: hydrALAZINE HCL 25 MG TABLET (FP) PO SCH ×3 (05:50→21:31)
[2022-02-25] MEDS: CALCIUM ACETATE 667 MG CAPSULE (FP) PO SCH ×3 (08:40→17:19)
[2022-02-25] MEDS: ISOSORBIDE DINITRATE 10 MG TABLET PO SCH ×2 (08:40→13:28)
[2022-02-25] MEDS: HEPARIN NA (PORCINE) 5,000 UNITS/ML 1ML VIAL SQ SCH ×2 (09:07→21:31)
[2022-02-25] MEDS: amLODIPine BESYLATE 10 MG TABLET (FP) PO SCH (09:08)
[2022-02-25] MEDS: ASPIRIN COATED 81 MG TABLET.EC PO SCH (09:08)
[2022-02-25] MEDS: CALCITRIOL 0.25 MCG CAPSULE (FP) PO SCH (09:08)
[2022-02-26] MEDS: hydrALAZINE HCL 25 MG TABLET (FP) PO SCH ×3 (05:51→21:31)
[2022-02-26] MEDS: ISOSORBIDE DINITRATE 10 MG TABLET PO SCH ×2 (08:02→13:44)
[2022-02-26] MEDS: CALCIUM ACETATE 667 MG CAPSULE (FP) PO SCH ×3 (08:02→16:30)
[2022-02-26] MEDS ORDERED: SODIUM CHLORIDE 250 ML IV PRN (08:20)
[2022-02-26 09:55] LABS: HEMATOCRIT 36.3 % (35.4-49); HEMOGLOBIN 11.7 GM/dL (11.7-16.9); MCH 26.5 pg (25.7-33.7); MCHC 32.4 g/dl (32.0-35.9); MEAN CELL VOLUME 81.9 fl (80-96); MEAN PLT VOLUME 9.5 fl (7.5-11.1); PLATELET COUNT 199 10^3/uL (134-434); RBC 4.43 M/mm3 (4.00-5.60); RDW 13.7 % (11.9-15.9); WHITE BLOOD COUNT 7.3 K/mm3 (4.0-10.0)
[2022-02-26 10:19] LABS: CHLORIDE 104 mmol/L (98-107); SODIUM 141 mmol/L (136-145)
[2022-02-26 10:21] LABS: ANION GAP 16 MMOL/L (8-16); CALCIUM 8.1 mg/dL (8.5-10.1); CO2 21 mmol/L (21-32); GLUCOSE,RANDOM 186 mg/dL (74-106)
[2022-02-26 10:24] LABS: PHOSPHOROUS 6.5 mg/dL (2.5-4.9); SGOT/AST 14 U/L (15-37); SGPT/ALT 32 U/L (13-61)
[2022-02-26 10:26] LABS: BILIRUBIN,TOTAL 0.3 mg/dL (0.2-1); TOT PROT 6.4 g/dl (6.4-8.2)
[2022-02-26 10:27] LABS: ALK PHOS 85 U/L (45-117)
[2022-02-26 10:38] LABS: BLOOD UREA NITROGEN 74.1 mg/dL (7-18); CREATININE 9.6 mg/dL (0.55-1.3)
[2022-02-26] MEDS: amLODIPine BESYLATE 10 MG TABLET (FP) PO SCH (12:09)
[2022-02-26] MEDS: HEPARIN NA (PORCINE) 5,000 UNITS/ML 1ML VIAL SQ SCH ×2 (12:09→21:31)
[2022-02-26] MEDS: ASPIRIN COATED 81 MG TABLET.EC PO SCH (12:09)
[2022-02-26] MEDS: CALCITRIOL 0.25 MCG CAPSULE (FP) PO SCH (12:10)
[2022-02-27] MEDS: hydrALAZINE HCL 25 MG TABLET (FP) PO SCH ×3 (06:27→22:35)
[2022-02-27] MEDS: ISOSORBIDE DINITRATE 10 MG TABLET PO SCH ×2 (08:16→13:11)
[2022-02-27] MEDS: CALCIUM ACETATE 667 MG CAPSULE (FP) PO SCH ×3 (08:16→17:19)
[2022-02-27] MEDS: HEPARIN NA (PORCINE) 5,000 UNITS/ML 1ML VIAL SQ SCH ×2 (09:45→22:35)
[2022-02-27] MEDS: amLODIPine BESYLATE 10 MG TABLET (FP) PO SCH (09:45)
[2022-02-27] MEDS: ASPIRIN COATED 81 MG TABLET.EC PO SCH (09:45)
[2022-02-27] MEDS: CALCITRIOL 0.25 MCG CAPSULE (FP) PO SCH (09:47)
[2022-02-27 11:00] LABS: BASO % 1.3 % (0-2.0); EOS % 4.6 % (0-4.5); HEMATOCRIT 36.6 % (35.4-49); LYMPH % 17.8 % (8-40); MCH 26.7 pg (25.7-33.7); MCHC 32.8 g/dl (32.0-35.9); MEAN CELL VOLUME 81.4 fl (80-96); MEAN PLT VOLUME 9.1 fl (7.5-11.1); MONO % 6.2 % (3.8-10.2); NEUT % 70.1 % (42.8-82.8); PLATELET COUNT 213 10^3/uL (134-434); RDW 13.5 % (11.9-15.9); WHITE BLOOD COUNT 7.5 K/mm3 (4.0-10.0)
[2022-02-27 11:17] LABS: CHLORIDE 103 mmol/L (98-107); SODIUM 141 mmol/L (136-145)
[2022-02-27 11:23] LABS: ANION GAP 13 MMOL/L (8-16); CALCIUM 8.4 mg/dL (8.5-10.1); CO2 25 mmol/L (21-32)
[2022-02-27 11:24] LABS: GLUCOSE,RANDOM 155 mg/dL (74-106); MAGNESIUM 2.2 mg/dL (1.8-2.4)
[2022-02-27 11:27] LABS: SGOT/AST 14 U/L (15-37); SGPT/ALT 32 U/L (13-61)
[2022-02-27 11:28] LABS: BILIRUBIN,TOTAL 0.3 mg/dL (0.2-1); TOT PROT 6.5 g/dl (6.4-8.2)
[2022-02-27 11:29] LABS: ALK PHOS 87 U/L (45-117)
[2022-02-27 11:33] LABS: BLOOD UREA NITROGEN 48.2 mg/dL (7-18); CREATININE 7.5 mg/dL (0.55-1.3)
[2022-02-28] MEDS: hydrALAZINE HCL 25 MG TABLET (FP) PO SCH ×3 (05:40→21:12)
[2022-02-28] MEDS: CALCITRIOL 0.25 MCG CAPSULE (FP) PO SCH (09:42)
[2022-02-28] MEDS: amLODIPine BESYLATE 10 MG TABLET (FP) PO SCH (09:43)
[2022-02-28] MEDS: CALCIUM ACETATE 667 MG CAPSULE (FP) PO SCH ×3 (09:43→16:43)
[2022-02-28] MEDS: ASPIRIN COATED 81 MG TABLET.EC PO SCH (09:43)
[2022-02-28] MEDS: ISOSORBIDE DINITRATE 10 MG TABLET PO SCH ×2 (09:43→14:00)
[2022-02-28] MEDS: HEPARIN NA (PORCINE) 5,000 UNITS/ML 1ML VIAL SQ SCH ×2 (09:44→21:14)
[2022-02-28 10:40] LABS: BASO % 1.3 % (0-2.0); EOS % 4.3 % (0-4.5); HEMATOCRIT 36.9 % (35.4-49); LYMPH % 16.7 % (8-40); MCH 26.4 pg (25.7-33.7); MCHC 32.5 g/dl (32.0-35.9); MEAN CELL VOLUME 81.2 fl (80-96); MEAN PLT VOLUME 8.9 fl (7.5-11.1); MONO % 5.7 % (3.8-10.2); PLATELET COUNT 194 10^3/uL (134-434); RBC 4.55 M/mm3 (4.00-5.60); RDW 13.6 % (11.9-15.9); WHITE BLOOD COUNT 7.4 K/mm3 (4.0-10.0)
[2022-02-28 11:06] LABS: CHLORIDE 102 mmol/L (98-107); SODIUM 138 mmol/L (136-145)
[2022-02-28 11:16] LABS: SGPT/ALT 30 U/L (13-61)
[2022-02-28 11:17] LABS: ANION GAP 12 MMOL/L (8-16); CALCIUM 8.7 mg/dL (8.5-10.1); CO2 24 mmol/L (21-32); GLUCOSE,RANDOM 153 mg/dL (74-106); MAGNESIUM 2.5 mg/dL (1.8-2.4); SGOT/AST 13 U/L (15-37)
[2022-02-28 11:18] LABS: ALBUMIN 3.1 g/dl (3.4-5.0); BILIRUBIN,TOTAL 0.4 mg/dL (0.2-1); BLOOD UREA NITROGEN 54.3 mg/dL (7-18); TOT PROT 6.7 g/dl (6.4-8.2)
[2022-02-28 11:19] LABS: ALK PHOS 87 U/L (45-117)
[2022-02-28 11:23] LABS: CREATININE 8.5 mg/dL (0.55-1.3)
[2022-03-01] MEDS: hydrALAZINE HCL 25 MG TABLET (FP) PO SCH ×2 (06:48→15:37)
[2022-03-01] MEDS: CALCIUM ACETATE 667 MG CAPSULE (FP) PO SCH ×2 (10:08→13:22)
[2022-03-01] MEDS: amLODIPine BESYLATE 10 MG TABLET (FP) PO SCH (10:08)
[2022-03-01] MEDS: ISOSORBIDE DINITRATE 10 MG TABLET PO SCH ×2 (10:08→13:22)
[2022-03-01] MEDS: ASPIRIN COATED 81 MG TABLET.EC PO SCH (10:08)
[2022-03-01] MEDS: CALCITRIOL 0.25 MCG CAPSULE (FP) PO SCH (10:09)
[2022-03-01] MEDS: HEPARIN NA (PORCINE) 5,000 UNITS/ML 1ML VIAL SQ SCH (10:09)
[2022-03-01] MEDS ORDERED: SODIUM CHLORIDE 250 ML IV PRN (10:10)
[2022-03-01 11:48] LABS: BASO % 1.6 % (0-2.0); EOS % 3.3 % (0-4.5); LYMPH % 17.8 % (8-40); MCH 26.3 pg (25.7-33.7); MCHC 32.3 g/dl (32.0-35.9); MEAN CELL VOLUME 81.3 fl (80-96); MEAN PLT VOLUME 9.4 fl (7.5-11.1); MONO % 7.1 % (3.8-10.2); NEUT % 70.2 % (42.8-82.8); PLATELET COUNT 221 10^3/uL (134-434); RBC 4.56 M/mm3 (4.00-5.60); RDW 13.4 % (11.9-15.9); WHITE BLOOD COUNT 7.5 K/mm3 (4.0-10.0)
[2022-03-01 12:15] LABS: CHLORIDE 106 mmol/L (98-107); SODIUM 141 mmol/L (136-145)
[2022-03-01 12:32] LABS: ALBUMIN 3.2 g/dl (3.4-5.0); ALK PHOS 84 U/L (45-117); ANION GAP 13 MMOL/L (8-16); BILIRUBIN,TOTAL 0.3 mg/dL (0.2-1); CALCIUM 8.8 mg/dL (8.5-10.1); CO2 22 mmol/L (21-32); GLUCOSE,RANDOM 108 mg/dL (74-106); MAGNESIUM 2.6 mg/dL (1.8-2.4); SGOT/AST 10 U/L (15-37); SGPT/ALT 25 U/L (13-61); TOT PROT 6.6 g/dl (6.4-8.2)
[2022-03-01 12:34] LABS: CREATININE 9.7 mg/dL (0.55-1.3)
[2022-03-01 13:00] VITALS: RESP 18; TEMP 98.2
[2022-03-01 16:45] VITALS: BP 128/87; PULSE 63
== END 2022-03-01 17:28 | disposition home or self-care (01) | DRG 194 ==
LOC: JER 12:47 → JERBED 02-14 06:45 → J4S 02-14 23:33 → J6S 02-26 18:15
PROVIDERS: ADMIT Internal Medicine; ATTEND Nurse Practitioner Family
PROC: B518ZZA Fluoroscopy of Superior Vena Cava, Guidance (ICD-10-PCS; 2022-02-16)
PROC: 02H633Z Insertion of Infusion Device into Right Atrium, Percutaneous Approach (ICD-10-PCS; principal; 2022-02-16 19:00)
PROC: 5A1D70Z Performance of Urinary Filtration, Intermittent, Less than 6 Hours Per Day (ICD-10-PCS; 2022-03-01)
DX: I13.2 Hypertensive heart and chronic kidney disease with heart failure and with stage 5 chronic kidney disease, or end stage renal disease (principal); I21.4 Non-ST elevation (NSTEMI) myocardial infarction; N18.6 End stage renal disease; E83.51 Hypocalcemia; E87.20 Acidosis, unspecified; M62.82 Rhabdomyolysis; I50.22 Chronic systolic (congestive) heart failure; E83.39 Other disorders of phosphorus metabolism; Z99.2 Dependence on renal dialysis; E78.5 Hyperlipidemia, unspecified
CPT/HCPCS: 0241U-QW; 36415; 71045-TC-FY; 76775-TC; 76856-TC; 78452-TC; 80048; 80053; 80061; 81003; 82306; 82310; 82550; 82553; 82570; 82962; 83036; 83735; 83880; 83970; 84100; 84156; 84300; 84443; 84484; 84540; 85025; 85027; 85610; 85730; 86707; 86803; 86850; 86900; 86901; 87340; 87350; 93005; 93010; 93017; 93306-TC; 94760; 99291; A9502; C1750; J1644; J2785

== ENCOUNTER 2022-10-12 11:18 | Inpatient (IN) | payer OTHER ==
[2022-10-12] MEDS ORDERED: SODIUM CHLORIDE 0.9% 500 ML INFUS.BAG IV ONE ×3 (11:34→13:27)
[2022-10-12] MEDS ORDERED: VANCOMYCIN HCL 1,500 MG in DEXTROSE 5%-WATER - 500 ML IVPB ONE (11:39)
[2022-10-12] MEDS ORDERED: PIPERACILLIN/TAZOB 2.25 GM 2.25 GM in DEXTROSE 5%-WATER - 50 ML IVPB ONE (11:39)
[2022-10-12 11:46] VITALS: BMI 30.8
[2022-10-12] MEDS ORDERED: PIPERACILLIN/TAZOB 2.25 GM 2.25 GM/50 ML BAG IVPB ONE (11:52)
[2022-10-12] MEDS ORDERED: VANCOMYCIN PREMIX 1.5 GM 1,500 MG/300 ML BAG IVPB ONE (11:56)
[2022-10-12 12:02] LABS: VENOUS BASE EXCESS -1.8 mmol/L (-2-2); VENOUS O2 SATURATION 66.8 % (70-80); VENOUS PCO2 29.5 mmHg (38-52); VENOUS PH 7.47 (7.310-7.410)
[2022-10-12 12:09] LABS: BASO % 0.5 % (0-2.0); EOS % 0.6 % (0-4.5); HEMATOCRIT 30.5 % (35.4-49); HEMOGLOBIN 10.3 GM/dL (11.7-16.9); LYMPH % 10.3 % (8-40); MCH 28.4 pg (25.7-33.7); MCHC 33.6 g/dl (32.0-35.9); MEAN CELL VOLUME 84.5 fl (80-96); MEAN PLT VOLUME 8.4 fl (7.5-11.1); MONO % 6.4 % (3.8-10.2); NEUT % 82.2 % (42.8-82.8); PLATELET COUNT 136 10^3/uL (134-434); RBC 3.61 M/mm3 (4.00-5.60); WHITE BLOOD COUNT 7.5 K/mm3 (4.0-10.0)
[2022-10-12 12:10] LABS: CHLORIDE 103 mmol/L (98-107); POTASSIUM 5.1 mmol/L (3.5-5.1); SODIUM 137 mmol/L (136-145)
[2022-10-12 12:12] LABS: ALBUMIN 3.6 g/dl (3.4-5.0); ANION GAP 14 MMOL/L (8-16); CALCIUM 8.7 mg/dL (8.5-10.1); CO2 19 mmol/L (21-32); GLUCOSE,RANDOM 117 mg/dL (74-106)
[2022-10-12 12:13] LABS: BLOOD UREA NITROGEN 61.4 mg/dL (7-18)
[2022-10-12 12:15] LABS: SGPT/ALT 28 U/L (13-61)
[2022-10-12 12:16] LABS: BILIRUBIN,TOTAL 0.4 mg/dL (0.2-1); INR 1.07 (0.83-1.09); PROTHROMBIN TIME (PATIENT) 12.4 SEC (9.7-13.0); SGOT/AST 12 U/L (15-37)
[2022-10-12 12:18] LABS: ALK PHOS 61 U/L (45-117)
[2022-10-12 12:19] LABS: ACTIVATED PTT 30.2 SECONDS (25.2-36.5)
[2022-10-12 12:21] LABS: LACTIC ACID 2.6 mmol/L (0.4-2.0)
[2022-10-12 12:22] LABS: CREATININE 11.5 mg/dL (0.55-1.3)
[2022-10-12] MEDS ORDERED: SODIUM CHLORIDE 500 ML IV STA (14:43)
[2022-10-12] MEDS ORDERED: SODIUM CHLORIDE 250 ML IV PRN (15:45)
[2022-10-12] MEDS ORDERED: ACETAMINOPHEN 1000 MG/100 ML BAG IVPB PRN (19:49)
[2022-10-12] MEDS: HEPARIN NA (PORCINE) 5,000 UNITS/ML 1ML VIAL SQ SCH (21:47)
[2022-10-12] MEDS ORDERED: IBUPROFEN 800 MG/8 ML IJ IVPB ONE (22:15)
[2022-10-13 08:31] LABS: BASO % 0.9 % (0-2.0); HEMATOCRIT 29.5 % (35.4-49); LYMPH % 12.3 % (8-40); MCH 28.7 pg (25.7-33.7); MCHC 33.9 g/dl (32.0-35.9); MEAN CELL VOLUME 84.6 fl (80-96); NEUT % 70.8 % (42.8-82.8); PLATELET COUNT 122 10^3/uL (134-434); RBC 3.48 M/mm3 (4.00-5.60); RDW 14.9 % (11.9-15.9); WHITE BLOOD COUNT 6.1 K/mm3 (4.0-10.0)
[2022-10-13 08:35] LABS: EPI CELLS 2 /uL (0-25.1); HYALINE CASTS 0 /uL (0-3.1); PH,URINE >= 9.0 (5.0-8.0); URINE APPEARANCE CLEAR; URINE BACTERIA 4 /uL (0-1359); URINE BILIRUBIN NEGATIVE (NEGATIVE); URINE COLOR YELLOW; URINE GLUCOSE (UA) TRACE (NEGATIVE); URINE KETONE NEGATIVE (NEGATIVE); URINE LEUK ESTERASE NEGATIVE (NEGATIVE); URINE NITRITE NEGATIVE (NEGATIVE); URINE PROTEIN 3+ (NEGATIVE); URINE RBC 8 /uL (0-23.9); URINE UROBILINOGEN 0.2 mg/dL (0.2-1.0); URINE WBC 1 /uL (0-25.8)
[2022-10-13 08:47] LABS: CHLORIDE 105 mmol/L (98-107); POTASSIUM 4.2 mmol/L (3.5-5.1); SODIUM 142 mmol/L (136-145)
[2022-10-13 08:51] LABS: ALBUMIN 3.2 g/dl (3.4-5.0); ANION GAP 8 MMOL/L (8-16); CO2 29 mmol/L (21-32); GLUCOSE,RANDOM 96 mg/dL (74-106); MAGNESIUM 2.2 mg/dL (1.8-2.4)
[2022-10-13 08:54] LABS: PHOSPHOROUS 4.9 mg/dL (2.5-4.9); SGOT/AST 19 U/L (15-37); SGPT/ALT 29 U/L (13-61)
[2022-10-13 08:55] LABS: BILIRUBIN,TOTAL 0.5 mg/dL (0.2-1)
[2022-10-13 08:56] LABS: TOT PROT 6.5 g/dl (6.4-8.2)
[2022-10-13 08:57] LABS: ALK PHOS 56 U/L (45-117)
[2022-10-13 09:04] LABS: BLOOD UREA NITROGEN 35.3 mg/dL (7-18)
[2022-10-13] MEDS: HEPARIN NA (PORCINE) 5,000 UNITS/ML 1ML VIAL SQ SCH ×2 (09:28→22:12)
[2022-10-13] MEDS: LOSARTAN POTASSIUM 50 MG TABLET PO SCH (22:12)
[2022-10-14] MEDS: amLODIPine BESYLATE 10 MG TABLET (FP) PO SCH (09:33)
[2022-10-14] MEDS: HEPARIN NA (PORCINE) 5,000 UNITS/ML 1ML VIAL SQ SCH ×2 (09:33→22:21)
[2022-10-14] MEDS ORDERED: EPOETIN ALFA-EPBX 4,000 UNIT/ML VIAL IVPUSH ONE (11:36)
[2022-10-14] MEDS: LOSARTAN POTASSIUM 50 MG TABLET PO SCH (22:21)
[2022-10-15] MEDS ORDERED: MELATONIN 5 MG TABLETS PO ONE (00:19)
[2022-10-15] MEDS ORDERED: SODIUM CHLORIDE 250 ML IV PRN (09:13)
[2022-10-15] MEDS ORDERED: EPOETIN ALFA-EPBX 4,000 UNIT/ML VIAL IVPUSH ONE (10:00)
[2022-10-15 10:51] LABS: HEMATOCRIT 29.8 % (35.4-49); MCH 28.3 pg (25.7-33.7); MCHC 33.5 g/dl (32.0-35.9); MEAN CELL VOLUME 84.6 fl (80-96); MEAN PLT VOLUME 8.8 fl (7.5-11.1); PLATELET COUNT 155 10^3/uL (134-434); RBC 3.52 M/mm3 (4.00-5.60); WHITE BLOOD COUNT 5.2 K/mm3 (4.0-10.0)
[2022-10-15 11:13] LABS: CHLORIDE 108 mmol/L (98-107); POTASSIUM 4.7 mmol/L (3.5-5.1); SODIUM 141 mmol/L (136-145)
[2022-10-15 11:14] LABS: ALBUMIN 3.3 g/dl (3.4-5.0); ANION GAP 14 MMOL/L (8-16); CALCIUM 8.1 mg/dL (8.5-10.1); CO2 19 mmol/L (21-32); GLUCOSE,RANDOM 144 mg/dL (74-106)
[2022-10-15 11:18] LABS: SGOT/AST 14 U/L (15-37); SGPT/ALT 27 U/L (13-61)
[2022-10-15 11:20] LABS: BILIRUBIN,TOTAL 0.4 mg/dL (0.2-1); TOT PROT 6.8 g/dl (6.4-8.2)
[2022-10-15 11:22] LABS: ALK PHOS 61 U/L (45-117)
[2022-10-15 11:34] LABS: BLOOD UREA NITROGEN 61.4 mg/dL (7-18)
[2022-10-15] MEDS: HEPARIN NA (PORCINE) 5,000 UNITS/ML 1ML VIAL SQ SCH ×2 (13:53→22:36)
[2022-10-15] MEDS: amLODIPine BESYLATE 10 MG TABLET (FP) PO SCH (13:53)
[2022-10-15] MEDS: LOSARTAN POTASSIUM 50 MG TABLET PO SCH (22:36)
[2022-10-16] MEDS: HEPARIN NA (PORCINE) 5,000 UNITS/ML 1ML VIAL SQ SCH ×2 (11:11→22:12)
[2022-10-16] MEDS: amLODIPine BESYLATE 10 MG TABLET (FP) PO SCH (11:11)
[2022-10-16] MEDS ORDERED: SODIUM CHLORIDE 250 ML IV PRN (14:36)
[2022-10-16] MEDS: LOSARTAN POTASSIUM 50 MG TABLET PO SCH (22:00)
[2022-10-17 11:57] VITALS: BP 120/77; PULSE 73; RESP 18; TEMP 98.4
[2022-10-17] MEDS: HEPARIN NA (PORCINE) 5,000 UNITS/ML 1ML VIAL SQ SCH (12:12)
[2022-10-17] MEDS: amLODIPine BESYLATE 10 MG TABLET (FP) PO SCH (12:17)
== END 2022-10-17 15:30 | disposition home or self-care (01) | DRG 721 ==
LOC: JER 11:18 → JERBED 13:59 → J7W 14:41
PROVIDERS: ADMIT Internal Medicine
PROC: 5A1D70Z Performance of Urinary Filtration, Intermittent, Less than 6 Hours Per Day (ICD-10-PCS; principal; 2022-10-12)
PROC: 05PYX3Z Removal of Infusion Device from Upper Vein, External Approach (ICD-10-PCS; 2022-10-12)
PROC: 5A1D70Z Performance of Urinary Filtration, Intermittent, Less than 6 Hours Per Day (ICD-10-PCS; 2022-10-15)
PROC: 5A1D70Z Performance of Urinary Filtration, Intermittent, Less than 6 Hours Per Day (ICD-10-PCS; 2022-10-17)
DX: T80.211A Bloodstream infection due to central venous catheter, initial encounter (principal); A41.89 Other specified sepsis; I13.2 Hypertensive heart and chronic kidney disease with heart failure and with stage 5 chronic kidney disease, or end stage renal disease; N18.6 End stage renal disease; I50.22 Chronic systolic (congestive) heart failure; R80.9 Proteinuria, unspecified; E66.8 Other obesity; R50.9 Fever, unspecified; Z68.30 Body mass index [BMI] 30.0-30.9, adult; Y83.8 Other surgical procedures as the cause of abnormal reaction of the patient, or of later complication, without mention of misadventure at the time of the procedure; Z99.2 Dependence on renal dialysis
CPT/HCPCS: 0241U-QW; 36415; 71045-TC-FY; 80053; 81003; 82550; 82553; 82803; 83605; 83735; 84100; 84484; 85025; 85027; 85610; 85730; 86803; 86850; 86900; 86901; 87040; 87086; 87340; 93005; 93010; 93306-TC; 97116-GP; 97161-GP; 99285-25; G0480; J1644; Q5106